=== PATIENT | female | born 1955 | race Caucasian/White ===

== ENCOUNTER → 2020-08-26 | Outpatient (CLI) | payer OTHER | END | disposition home or self-care (01) | LOC: RD 09:41 | DX: M79.671 Pain in right foot (principal) ==

== ENCOUNTER → 2020-09-14 | Outpatient (CLI) | payer OTHER | END | disposition home or self-care (01) | LOC: MI 08:30 | PROVIDERS: ATTEND Student in an Organized Health Care Education/Training Program | PROC: BQ3LZZZ Magnetic Resonance Imaging (MRI) of Right Foot (ICD-10-PCS; principal; 2020-09-14) | DX: M79.671 Pain in right foot (principal) ==